=== PATIENT | male | born 1980 | race African-American/Black ===

== ENCOUNTER → 2021-10-21 13:10 | Outpatient (REF) | payer MEDICAID, SELFPAY ==
--- NOTE | 2021-10-21 13:17 | ECG_ITS ---
Hook-up date: 2021-10-21 13:28:00 Duration: 24:48:00 Test Indications: PALPITATIONS Medications: 94485 QRS complexes 131 Ventricular ectopics which represent <1 % of total QRS comp. * Supraventricular ectopics which represent % of total QRS comp. * Paced QRS complexs which represent % of total QRS comp. VENTRICULAR ECTOPY 131 Isolated 0 Bigeminal Cycles 0 Couplets 0 Runs 0 Beats in Runs * Beats LONGEST at * BPM at :: -- * Beats FASTEST at * BPM at :: -- SUPRAVENTRICULAR ECTOPY * Isolated * Couplets * Runs * Beats in Runs * Beats LONGEST at * BPM at :: -- * Beats FASTEST at * BPM at :: -- HEART RATES 45 MIN at 00:46:26 2021-10-22 68 AVG 154 MAX at 13:53:24 2021-10-21 LONGEST RR 1.3600 secs at 02:11:16 2021-10-22 S-T LEVELS Channel 1 - 128 mm at 13:28:00 2021-10-21 - 128 mm at 13:28:00 2021-10-21 Channel 2 - 128 mm at 13:28:00 2021-10-21 - 128 mm at 13:28:00 2021-10-21 Channel 3 - 128 mm at 03:24:71 -- - 128 mm at 03:24:71 Underlying rhythm is sinus; Average ventricular rate 68/min; range 45-154/min; Rare ventricular ectopy; No sustained arrhythmias; Patient did not report any symptoms in the diary Referred By: Andrei Gutierrez Overread By: AMBER JAMES
== END ==
LOC: HO.CARD 13:10
PROVIDERS: Visit Provider Internal Medicine
DX: R00.2 Palpitations (principal)
CPT/HCPCS: 93225; 93226

== ENCOUNTER 2024-12-26 10:20 | Outpatient (REF) | payer MEDICAID, SELFPAY ==
--- OUTSIDE RECORDS SUMMARY | 2024-12-26 11:43 | XMS_ITS | Clinical Summary ---
Author Organization [facility] Address [address] [place] [address] Care Team Providers Care Guard Lieutenant Name Role Phone Andrei Gutierrez MD Primary Care Provider [phone] Allergies No known active allergies Medications Dextromethorphan -guaiFENesin (Mucinex DM) 30-600 MG tablet sustained-releas e 12 hour Use 1 tab TID 28 tablet 10/14/2024 Active Active Problems Problem Noted Date Diagnosed Date Elevated blood pressure reading 12/26/2024 Annual physical exam 12/26/2024 Encounters Date Type Department Care Team Description 12/26/2024 9:30 AM EDT Office Visit [facility] [address] [place] [address] Andrei Gutierrez MD Elevated blood pressure reading (Primary Dx); Screening for colon cancer; Annual physical exam 12/26/2024 Travel 12/19/2024 Patient Outreach [address] [address] Andrei Gutierrez MD Pre-visit Planning (Pre visit planning LVM ) 10/19/2024 Telephone [facility] [address] [place] [address] Andrei Gutierrez MD Insurance 10/14/2024 10:00 AM EST Office Visit [facility] [address] [place] [address] Lisa Escobar MD Influenza B 10/14/2024 Travel 10/14/[address] [address] Andrei Gutierrez MD Nurse Triage from Last 3 Months Immunizations Name Administration Dates Next Due Tdap 01/30/2022 Social History Tobacco Use Types Packs/Day Years Used Date Smoking Tobacco: Never Smokeless Tobacco: Never Tobacco Cessation:Counseling Given: Not Answered Alcohol Use Standard Drinks/Week Comments Never 0 (1 standard drink = 0.6 oz pur e alcohol) Depression Answer Date Recorded Patient Health Questionnaire-9 Score 0 12/26/2024 Patient Health Questionnaire-9 Score 0 12/26/2024 Last PHQ-9: Questionnaire Data Not on file 0 12/26/2024 Housing Stability Answer Date Recorded What is your housing situation today? I have cherrie garcia 12/26/[address] you li ve. Do you have problems with any of the following? None of the above 12/26/2024 Food Insecurity Answer Date Recorded Within the past 12 months, y ou worried that your food would run out before you got money to buy more: Never True 12/26/2024 Within the past 12 months,th e food you bought just didn't last and you didn't have enough money to get more: Never True 12/2024 Transportation Answer Date Recorded In the past 12 months, has l ack of transportation kept you from medical appts, meetings, work or from getting things needed for daily living? No 12/26/2024 Utilities Answer Date Recorded In the past 12 months, has t he electric, gas, oil or water company threatened to shut off services in your home? No 12/26/2024 Depression Answer Date Recorded Patient Health Questionnaire-2 Score 0 12/26/2024 Internet Access Answer Date Recorded Internet Access Q1 Yes 12/26/2024 Internet Access Q2 Not on file 12/26/2024 Sex and Gender Information Value Date Recorded Sex Assigned at Male 06/23/2022 10:35 AM EDT Legal Sex Male 10:35 AM EDT Gender Identity Male 06/23/2022 10:35 AM EDT Sexual Orientation Straight 06/23/2022 10 :35 AM EDT Last Filed Vital Signs Vital Sign Reading Time Taken Comments Blood Pressure 132/87 12/26/2024 9:33 AM EDT Pulse 56 12/26/2024 9:33 AM EDT Temperature 36.8 ??C (98.3 ??F) 12/26/2024 9:33 AM ED T Respiratory Rate 20 12/26/2024 9:33 AM EDT Oxygen Saturation 98% 12/26/2024 9:33 AM EDT Inhaled Oxygen Concentration - - Weight 74.3 kg (163 lb 12.8 oz) 12/26/2024 9:33 AM EDT Height 170.2 cm (5' 7 ) 12/26/2024 9:33 AM EDT Body Mass Index 25.65 12/26/2024 9:33 AM EDT Plan of Treatment Health Maintenance Due Date Last Done Comments CT Colonography 1978 Colonoscopy 1978 Colorectal Cancer Screening 1978 FIT DNA/Cologuard 1978 FIT 1978 FOBT 1978 Sigmoidoscopy 1978 Family Planning (PISQ) 1993 Hepatitis B Vaccines (1 of 3 - 19+ 3-dose series) 1997 COVID-19 Vaccine (2023-2 5 season) 2024 Influenza Vaccine (#1) 2024 Alcohol/Substance Use Screening 12/26/2025 12/26/2024 Depression Screening 12/26/2025 12/26/2024, 12/26/2024 SDOH Screening 12/26/2025 12/26/2024 Tobacco Screening 12/26/2025 12/26/2024 Lipid Panel 05/24/2026 05/24/2021 Zoster Vaccines (1 of 2) 01/06/2028 DTaP/Tdap/Td Vaccines (2 - T d or Tdap) 01/31/2032 01/30/2022 RSV Patients and Patients Aged 60 years or older (1 - 1-dose 75+ series) 2053 HIV Screening Completed 01/30/2022 Hepatitis C Screening Completed 01/30/2022 HIB Vaccines Aged Out No longer eligi ble based on patient's age to complete this topic HPV Vaccines Aged Out No longer eligi ble based on patient's age to complete this topic Hepatitis A Vaccines Aged Out No long er eligible based on patient's age to complete this topic IPV Vaccines Aged Out No longer eligi ble based on patient's age to complete this topic Meningococcal Vaccine Aged Out No memo yan eligible based on patient's age to complete this topic Pneumococcal Vaccine: Pediatrics (0 to 5 Years) and At-Risk Patients (6 to 49) Years) Aged Out No longer eligible b ased on patient's age to complete this topic RSV under 20 months Aged Out No longe r eligible based on patient's age to complete this topic Rotavirus Vaccines Aged Out No longer eligible based on patient's age to complete this topic Procedures Procedure Name Priority Date/Time Associated Diagnosis Comments POCT INFLUENZA A Routine 10/14/2024 10:3 6 AM EST Influenza B POCT RAPID COVID ANTIGEN Routine 10/14/2024 10:36 AM EST Influenza B POCT INFLUENZA B Routine 10/14/2024 10:3 5 AM EST Influenza B ZZZ HISTORICAL HEPATITIS C AB W/REFL TO HCV RNA, QN, PCR Routine 01/30/2022 12:00 AM EDT HIV 1/2 ANTIGEN/ANTIBODY, FOURTH GENERATION W/RFL Routine 01/30/2022 12:00 AM EDT LIPID PANEL, STANDARD Routine 05/24/2021 10:16 AM EDT from Last 3 Months or Most Recently Relevant to Health Maintenance Results * POCT Rapid Covid-19 BinaxNOW (10/14/2024 10:36 AM EST) Rapid COVID Ag Negative QC Media Lot # [id number] Lot# Expiration Date 7,026 Swab 10/14/2024 10:3 6 AM EST Lisa Escobar MD POINT OF CARE TEST ENTER/EDIT OR DERABLES Final Result * POCT Rapid Influenza A OSOM (10/14/2024 10:36 AM EST) Rapid Influenza A Ag Negative Negative, Indeterminate QC Media Lot # [id number] Lot# Expiration Date [id number] Swab Nasopharyngeal structure / Unknown 10/14/2024 10:36 AM EST Lisa Escobar MD POINT OF CARE TEST ENTER/EDIT OR DERABLES Final Result * (ABNORMAL) POCT Rapid Influenza B OSOM (10/14/2024 10:35 AM EST) Pathologist [facility] Rapid Influenza B Ag Positive( A) Negative, Indeterminate QC Media Lot # [id number] Lot# Expiration Date Swab 10/14/2024 10:3 5 AM EST Lisa Escobar MD POINT OF CARE TEST ENTER/EDIT OR DERABLES Final Result * HEPATITIS C AB W/REFL TO HCV RNA, QN, PCR (01/30/2022 12:00 AM EDT) Pathologist [facility] HEPATITIS C ANTIBODY NON-REACT ANDREA NON-REACT ANDREA [facility] INDEX 0.15 <1.00 [facility] Comment: ?? HCV antibody was non-reactive. There is no laboratory ?? evidence of HCV infection. ?? In most cases, no further action is required. However, if recent HCV exposure is suspected, a test for HCV RNA (test code 18962) is suggested. ?? For additional information please refer to http://education.Reimage/faq/NLF70w9 (This link is being provided for informational/ educational purposes only.) ?? 01/30/2022 Andrei Gutierrez MD HISTORICAL/NON ORDERABLE LA BS Final Result [facility] [address] * HIV 1/2 ANTIGEN/ANTIBODY,FOURTH GENERATION W/RFL (01/30/2022 12:00 AM EDT) Pathologist [facility] HIV-1/2 ANTIGEN AND ANTIBODIES, 4TH GENERATION W/ REFLEX NON-REACT ANDREA NON-REACT ANDREA [facility] Comment: HIV-1 antigen and HIV-1/HIV-2 antibodies were not detected. There is no laboratory evidence of HIV infection. ?? PLEASE NOTE: This information has been disclosed to you from records whose confidentiality may be protected by state law. ??If your state requires such protection, then the state law prohibits you from making any further disclosure of the information without the specific written consent of the person to whom it pertains, or as otherwise permitted by law. A general authorization for the release of medical or other information is NOT sufficient for this purpose. ? For additional information please refer to http://LinQpay.Reimage/faq/GDV225 (This link is being provided for informational/ educational purposes only.) ? The performance of this assay has not been clinically validated in patients less than 2 years old. ?? 01/30/2022 us Andrei Gutierrez MD LAB BLOOD ORDERABLES Final Result Performing Organization Address City/State/[facility] Co de Phone Number [facility] [address] * LIPID PANEL, STANDARD (05/24/2021 10:16 AM EDT) Chol/HDLC Ratio 3.0 <5.0 (calc) [facility] Cholesterol, Total 131 <200 mg/dL [facility] HDL Cholesterol 43 > OR = 40 mg/dL [facility] LDL Cholesterol 74 mg/dL (calc) [facility] Comment: Reference range: <100 ?? Desirable range <100 mg/dL for primary prevention; ?? <70 mg/dL for patients with CHD or diabetic patients ?? with > or = 2 CHD risk factors. ?? LDL-C is now calculated using the Cindi ?? calculation, which is a validated novel method providing ?? better accuracy than the Friedewald equation in the ?? estimation of LDL-C. ?? Joel THAO et al. KURT. 2013;310(19): 4072-0517 ?? (http://LinQpay.Shopalytic/faq/QOY062) Non-HDL Cholesterol 88 <130 mg/dL (calc) [facility] Comment: For patients with diabetes plus 1 major ASCVD risk ?? factor, treating to a non-HDL-C goal of <100 mg/dL ?? (LDL-C of <70 mg/dL) is considered a therapeutic ?? option. Triglycerides 62 <150 mg/dL [facility] 05/24/2021 10:1 6 AM EDT us Francheska Govea MD LAB BLOOD ORDERABLES Final Re sult [facility] [address] from Last 3 Months or Most Recently Relevant to Health Maintenance Insurance [facility] Care Teams Guard Lieutenant Relationship Specialty Start Date End Date Andrei Gutierrez MD [address] [place] [address] PCP - General Internal Medicine 09/17/18
--- OUTSIDE RECORDS SUMMARY | 2024-12-26 11:43 | XMS_ITS | Encounter Summary ---
Author Organization [employer] Address [address] [place] [address] Care Team Providers Care Value Analyst Name Role Phone Andrei Gutierrez MD Primary Care Provider [phone] Reason for Visit * Reason Comments Annual Exam Encounter Details Date Type Department Care Team ([facility] Contact Info) Description 12/26/2024 9:30 AM EDT Office Visit [facility] [address] [place] [address] Andrei Gutierrez MD [address] [place] [address] Elevated blood pressure reading (Primary Dx); Screening for colon cancer; Annual physical exam Social History Tobacco Use Types Packs/Day Years Used Date Smoking Tobacco: Never Smokeless Tobacco: Never Alcohol Use Standard Drinks/Week Comments Never 0 [...] Orientation Straight 06/23/2022 10 :35 AM EDT documented as of this encounter Last Filed Vital Signs Vital Sign Reading [...] Mass Index 25.65 12/26/2024 9:33 AM EDT documented in this encounter Plan of Treatment Scheduled Orders Name Type Priority Associated Diagnoses Orde r Schedule CBC auto differential Lab Routine Elevated blood pressure reading Expected: 12/26/2024 (Approximate), Expires: 12/26/2025 Comprehensive Metabolic Panel Lab Routine Elevated blood pressure reading Expected: 12/26/2024 (Approximate), Expires: 12/26/2025 Lipid Panel, Standard Lab Routine Elevated blood pressure reading Expected: 12/26/2024 (Approximate), Expires: 12/26/2025 TSH W/Reflex to FT4 Lab Routine Elevated blood pressure reading Expected: 12/26/2024 (Approximate), Expires: 12/26/2025 Cologuard?? colon cancer screening Lab Routine Screening for colon cancer Expected: 12/26/2024 (Approximate), Expires: 12/26/2025 Hepatitis A,B,C Profile Lab Routine Elevated blood pressure reading Expected: 12/26/2024, Expires: 12/26/2025 documented as of this encounter Visit Diagnoses Diagnosis Elevated blood pressure reading- Primary Elevated blood pressure reading without diagnosis of hypertension Screening for colon cancer Special screening for malignant neoplasms, colon Annual physical exam Routine general medical examination at a health care facility documented in this encounter Additional Health Concerns Assessment Noted Time PHQ-9 Depression Total Score: 0 12/27/19 10:31 AM EDT documented as of this encounter Care Teams Value Analyst Relationship Specialty Start Date End Date Andrei Gutierrez MD [address] [place] [id number] PCP - General Internal Medicine 09/17/18 documented as of this encounter
--- OUTSIDE RECORDS SUMMARY | 2024-12-26 11:43 | XMS_ITS | Encounter Summary ---
Author Organization [employer] Address [address] [place] [address] Care Team Providers Care Audiologist Name Role Phone Andrei Gutierrez MD Primary Care Provider [phone]- [phone] Encounter Details Date Type Department Care Team (Latest Contact Info) Description 12/26/2024 Travel Social History Tobacco Use Types Packs/Day Years [...] AM EDT documented as of this encounter Plan of Treatment Not on file documented as of this encounter Visit Diagnoses Not on filedocumented in this encounter Additional Health Concerns Assessment Noted Time PHQ-9 Depression Total Score: 0 12/27/19 10:31 AM EDT documented as of this encounter Care Teams Audiologist Relationship Specialty Start Date End Date Andrei Gutierrez MD [address] [place] [id number] PCP - General Internal Medicine 09/17/18 documented as of this encounter
[2024-12-26 14:50] LABS: MANUAL DIFF FLAG NO
[2024-12-26 14:54] LABS: Basophils Percent Auto 0.7 % (0-2); Eosinophils Absolute Auto 0.1 X10*3/uL (0.0-0.4); Eosinophils Percent Auto 3.1 % (0-4); Hematocrit 45.7 % (42.0-52.0); Hemoglobin 15.1 g/dl (14.0-18.0); Imm Gran Abs Auto 0.01 X10*3/uL (0.00-0.03); Imm Gran Pct Auto 0.2 % (0.0-0.4); Lymphocytes Absolute Auto 1.5 X10*3/uL (1.2-4.9); Lymphocytes Percent Auto 36.3 % (20-40); Mean Corpuscular Hemoglobin 28.4 pg (27.0-33.0); Mean Corpuscular Volume 85.9 fL (80.0-98.0); Mean Platelet Volume 10.7 fL (9.4-12.4); Monocytes Absolute Auto 0.4 X10*3/uL (0.1-1.2); Monocytes Percent Auto 8.5 % (2-11); Neutrophils Absolute Auto 2.2 x10*3/uL (2.0-8.3); Neutrophils Percent Auto 51.2 % (45-73); Platelet Count 199 X10*3/uL (160-400); Red Blood Count 5.32 X10*6/uL (4.60-5.80); Red Cell Distribution Width 12.2 % (11.0-16.0); White Blood Count 4.2 X10*3/uL (4.8-10.8)
[2024-12-26 15:20] LABS: Alanine Aminotransferase 56 U/L (0-40); Albumin Level 4.4 g/dL (3.5-5.0); Anion Gap 11 (12-20); Aspartate Amino Transferase 44 U/L (5-37); Bilirubin Total 0.3 mg/dL (0.0-1.0); Blood Urea Nitrogen 9 mg/dL (9-16); Calcium 9.2 mg/dL (8.4-10.2); Carbon Dioxide 29 mmol/L (22-29); Chloride 103 mmol/L (96-108); Cholesterol 136 mg/dL (<200); Estimated Glomerular Filt Rate > 60; Glucose Random 91 mg/dL (60-115); HDL Cholesterol 45 mg/dL (>40); LDL Cholesterol Calculated 80 mg/dL (<100); Potassium 4.1 mmol/L (3.3-5.1); Sodium 139 mmol/L (135-145); Total Protein 7.2 g/dL (6.5-8.0); Triglycerides 57 mg/dL (<150)
[2024-12-26 15:31] LABS: TSH reflex Free T4 0.96 uIU/mL (0.32-4.0)
[2024-12-26 16:07] LABS: Alkaline Phosphatase 82 U/L (39-117)
[2024-12-27 04:14] LABS: HBS Num1 > 1000.00 mIU/mL (0-7.99); HBc Num1 0.11 S/CO (0.00-0.79); HBsAGNum1 0.47 S/CO (0.00-0.99); Hepatitis A Antibody IgM 0.21 Index (0-0.79); Hepatitis B Core Antibody Nonreactive (Nonreactive); Hepatitis B Surface Antigen Negative (Negative); ~HepC Num1 0.15 S/CO (0.00-0.79); ~Hepatitis A Antibody IgM Nonreactive (Nonreactive); ~Hepatitis B Surface Antibody REACTIVE (Nonreactive); ~Hepatitis C Antibody Nonreactive (Nonreactive)
== END 2024-12-26 10:21 | disposition home or self-care (01) ==
LOC: HO.CHCLDS 10:20
PROVIDERS: Visit Provider Internal Medicine
DX: R03.0 Elevated blood-pressure reading, without diagnosis of hypertension (principal)
CPT/HCPCS: 36415; 80053; 80061; 84443; 85025; 86704; 86706; 86709; 86803; 87340

== ENCOUNTER 2024-12-30 11:01 | Outpatient (REF) | payer OTHER, SELFPAY ==
--- OUTSIDE RECORDS SUMMARY | 2024-12-30 11:33 | XMS_ITS | Encounter Summary ---
Author Organization [employer] Address [address] [place] [address] Care Team Providers Care Building Insulation Installer Name Role Phone Andrei Gutierrez MD Primary Care Provider Encounter Details Date Type Department Care Team [...] documented as of this encounter Care Teams Building Insulation Installer Relationship Specialty Start Date End Date Andrei Gutierrez MD [address] [place] [id number] PCP - General Internal Medicine 09/17/18 documented as of this encounter
--- OUTSIDE RECORDS SUMMARY | 2024-12-30 11:33 | XMS_ITS | Encounter Summary ---
Author Organization [employer] Address [address] [place] [address] Care Team Providers Care Entrepreneurship Program Director Name Role Phone Andrei Gutierrez MD Primary Care Provider Reason for Visit * Reason Comments Annual Exam Encounter Details Date Type Department Care Team ([facility] st Contact Info) Description 12/26/2024 9:30 AM EDT Office Visit [facility] [address] [place] [phone] Andrei Gutierrez MD [address] [place] [address] Elevated blood pressure reading (Primary Dx); Screening [...] is your housing situation today? I have hcerrie garcia 12/26/[address] you [...] 9:33 AM EDT documented in this encounter Progress Notes * Andrei Gutierrez MD - 12/26/2024 9:30 AM EDT SUBJECTIVE Kali Murry is a 44 y.o. male who presents for Annual Exam. HPI Patient is feeling overall well. Denies any acute events since his last office visit. Patient Active Problem List Diagnosis Elevated blood pressure reading No Known Allergies Current Outpatient Medications on File Prior to Visit Medication Sig Dispense Refill Dextromethorphan-guaiFENesin (Mucinex DM) 30-600 MG tablet sustained-release 12 hour Use 1 tab TID 28 tablet 0 No current facility-administered medications on file prior to visit. Review of Systems Constitutional: Negative for activity change, appetite change, chills and diaphoresis. HENT: Negative for dental problem, drooling and ear discharge. Eyes: Negative for pain and itching. Respiratory: Negative for cough, choking and chest tightness. Cardiovascular: Negative for palpitations and leg swelling. Gastrointestinal: Negative for abdominal pain, anal bleeding and blood in stool. Endocrine: Negative for cold intolerance and heat intolerance. Genitourinary: Negative for flank pain, frequency and genital sores. Musculoskeletal: Negative for back pain. Neurological: Negative for light-headedness, numbness and headaches. Psychiatric/Behavioral: Negative for agitation, confusion and decreased concentration. OBJECTIVE Vitals: 12/26/24 0933 BP: 132/87 BP Location: Left arm Patient Position: Sitting BP Cuff Size: Adult Pulse: 56 Resp: 20 Temp: 98.3 ??F (36.8 ??C) TempSrc: Oral SpO2: 98% Weight: 163 lb 12.8 oz (74.3 kg) Height: 5' 7 (1.702 m) Physical Exam Constitutional: General: He is not in acute distress. Appearance: Normal appearance. He is obese. He is not ill-appearing, toxic- appearing or diaphoretic. HENT: Head: Normocephalic. Right Ear: Tympanic membrane normal. Left Ear: Tympanic membrane normal. Nose: Nose normal. Eyes: General: No scleral icterus. Right eye: No discharge. Left eye: No discharge. Pupils: Pupils are equal, round, and reactive to light. Cardiovascular: Rate and Rhythm: Normal rate and regular rhythm. Heart sounds: No murmur heard. No friction rub. No gallop. Pulmonary: Effort: Pulmonary effort is normal. No respiratory distress. Breath sounds: Normal breath sounds. No stridor. No wheezing, rhonchi or rales. Chest: Chest wall: No tenderness. Abdominal: General: Abdomen is flat. There is no distension. Palpations: Abdomen is soft. There is no mass. Tenderness: There is no abdominal tenderness. There is no right CVA tenderness, guarding or rebound. Hernia: No hernia is present. Musculoskeletal: General: Normal range of motion. Cervical back: Normal range of motion. Skin: General: Skin is warm. Neurological: General: No focal deficit present. Mental Status: He is alert. Psychiatric: Mood and Affect: Mood normal. Behavior: Behavior normal. Assessment/Plan Assessment/Plan Diagnoses and all orders for this visit: Elevated blood pressure reading Comments: Continue with BP monitoring at home Call the office if the blood pressure is above goal. Orders: - CBC auto differential; Future - Comprehensive Metabolic Panel; Future - Lipid Panel, Standard; Future - TSH W/Reflex to FT4; Future - Hepatitis A,B,C Profile; Future Screening for colon cancer - Cologuard?? colon cancer screening; Future Annual physical exam Comments: Normal exam Patient is to maintain a healthy and balanced diet. Mr Kali Murry will be called with the results of his blood work. documented in this encounter Plan of Treatment Scheduled Orders Name Type Priority Associated Diagnoses Orde r Schedule Cologuard?? colon cancer screening Lab Routine Screening for colon cancer Expected: 12/26/2024 (Approximate), Expires: 12/26/2025 documented as of this encounter Procedures Procedure Name Priority Date/Time Associated Diagnosis Comments TSH W/REFLEX TO FT4 Routine 12/26/2024 1 0:23 AM EDT Elevated blood pressure reading HEPATITIS PANEL, GENERAL Routine 12/26/2024 10:23 AM EDT Elevated blood pressure reading CBC WITH AUTO DIFFERENTIAL Routine 12/26/2024 10:23 AM EDT Elevated blood pressure reading LIPID PANEL, STANDARD Routine 12/26/2024 10:23 AM EDT Elevated blood pressure reading COMPREHENSIVE METABOLIC PANEL Routine 12/26/2024 10:23 AM EDT Elevated blood pressure reading documented in this encounter Results * Hepatitis A,B,C Profile (12/26/2024 10:23 AM EDT) Hepatitis A IgM Nonreactive Nonreactive [facility] Comment:IgM antibodies to TUCKER V not detected; does not exclude earlyacute or recovered HAV infection. ~Hepatitis B Surface Antibody REACTIVE Nonreactive [facility] Comment:REACTIVE: > 11.99 mI U/mL Hepatitis B Core Antibody Nonreactive Nonreactive [facility] Hepatitis C Antibody Nonreactive Nonreactive [facility] Comment:Antibodies to HCV no t detected; does not exclude early acuteHCV infection. Hepatitis B Surface Ag Negative Negative [facility] Blood Venous blood specimen / Unknown 12/26/2024 10:23 AM EDT 12/26/2024 2:46 PM EDT us Andrei Gutierrez MD LAB BLOOD ORDERABLES Final Result Performing Organization Address [facility] Co de Phone Number [facility] [address] [place] [phone] * TSH W/Reflex to FT4 (12/26/2024 10:23 AM EDT) TSH reflex Free T4 0.96 0.32 - 4.0 uIU/mL [facility] Blood Venous blood specimen / Unknown 12/26/2024 10:23 AM EDT 12/26/2024 2:46 PM EDT us Andrei Gutierrez MD LAB BLOOD ORDERABLES Final Result Performing Organization Address [facility] Phone Number [facility] [address] [place] [phone] * Lipid Panel, Standard (12/26/2024 10:23 AM EDT) Triglycerides 57 <150 mg/dL [facility] Comment:Desirable Triglyceri de: less than 150 mg/dLBorderline High Triglyceride 150-199 mg/dLHigh Triglyceride: 200-499 mg/dLVery High Triglyceride: greater than or equal to 5OO mg/dL Cholesterol 136 <200 mg/dL [facility] Comment:Desirable Cholestero l: less than 200 mg/dLBorderline High Cholesterol: 200-239 mg/dLHigh Cholesterol: greater than 239 mg/dL LDL Cholesterol Calculated 80 <100 mg/dL [facility] Comment:Desirable LDL: less than 100 mg/dLNear Optimal/Above Optimal LDL: 110- 129 mg/dLBorderline High LDL: 130-159 mg/dLHigh LDL: 160-189 mg/dLVery High LDL: greater than or equal to 190 mg/dL HDL Cholesterol 45 >40 mg/dL [facility] Comment:Desirable HDL: great er than 40 mg/dL Note: This HDL assay may give artificially low results in patients with liver disease. Blood Venous blood specimen / Unknown 12/26/2024 10:23 AM EDT 12/26/2024 2:46 PM EDT us Andrei Gutierrez MD LAB BLOOD ORDERABLES Final Result [facility] [address] [place] [phone] * (ABNORMAL) Comprehensive Metabolic Panel (12/26/2024 10:23 AM EDT) Sodium 139 135 - 145 mmol/L [facility] Potassium 4.1 3.3 - 5.1 mmol/L [facility] Chloride 103 96 - 108 mmol/L [facility] Carbon Dioxide 29 22 - 29 mmol/L [facility] Anion Gap 11(L) 12 - 20 [facility] Urea Nitrogen (BUN) 9 9 - 16 mg/dL [facility] Creatinine, Serum 1.04 0.5 - 1.4 mg/dL [facility] Estimated Glomerular Filt Rate >60 [facility] Comment:Chronic Kidney Disea se: Estimated GFR < 60 mL/min/[id number] Kidney Disease: Estimated GFR < 15 mL/min/1.73m2 Glucose 91 60 - 115 mg/dL [facility] Calcium 9.2 8.4 - 10.2 mg/dL [facility] Bilirubin, Total 0.3 0.0 - 1.0 mg/dL [facility] Aspartate Amino Transferase 44(H) 5 - 37 U/L [facility] Alanine Aminotransferase 56(H) 0 - 40 U/L [facility] Total Protein 7.2 6.5 - 8.0 g/dL [facility] Albumin Level 4.4 3.5 - 5.0 g/dL [facility] Alkaline Phosphatase 82 39 - 117 U/L [facility] Blood Venous blood specimen / Unknown 12/26/2024 10:23 AM EDT 12/26/2024 2:46 PM EDT Andrei Gutierrez MD LAB BLOOD ORDERABLES Final Result [facility] [address] [place] [phone] * (ABNORMAL) CBC auto differential (12/26/2024 10:23 AM EDT) White Blood Count 4.2(L) 4.8 - 10.8 X10*3/uL [facility] Red Blood Count 5.32 4.60 - 5.80 X10*6/uL [facility] Hemoglobin 15.1 14.0 - 18.0 g/dl [facility] Hematocrit 45.7 42.0 - 52.0 % [facility] Mean Corpuscular Volume 85.9 80.0 - 98.0 fL [facility] Mean Corpuscular Hemoglobin 28.4 27.0 - 33.0 pg [facility] Mean Corpuscular HGB Conc 33.0 31.0 - 36.0 g/dl [facility] Red Cell Distribution Width 12.2 11.0 - 16.0 % [facility] Platelet Count 199 160 - 400 X10*3/uL [facility] Mean Platelet Volume 10.7 9.4 - 12.4 fL [facility] Neutrophils Percent Auto 51.2 45 - 73 % [facility] Imm Gran Pct Auto 0.2 0.0 - 0.4 % [facility] Lymphocytes Percent Auto 36.3 20 - 40 % [facility] Monocytes Percent Auto 8.5 2 - 11 % [facility] Eosinophils Percent Auto 3.1 0 - 4 % [facility] Basophils Percent Auto 0.7 0 - 2 % [facility] NRBC Pct Auto 0.0 0.0 - 0.2 /100WBC [facility] Neutrophils Absolute Auto 2.2 2.0 - 8.3 x10*3/uL [facility] Imm Gran Abs Auto 0.01 0.00 - 0.03 X10*3/uL [facility] Lymphocytes Absolute Auto 1.5 1.2 - 4.9 X10*3/uL [facility] Monocytes Absolute Auto 0.4 0.1 - 1.2 X10*3/uL [facility] Eosinophils Absolute Auto 0.1 0.0 - 0.4 X10*3/uL [facility] Basophils Absolute Auto 0.0 0.0 - 0.2 X10*3/uL [facility] NRBC Abs Auto 0.000 0.0 - 0.012 X10*3/uL [facility] Blood Venous blood specimen / Unknown 12/26/2024 10:23 AM EDT 12/26/2024 2:46 PM EDT us Andrei Gutierrez MD LAB BLOOD ORDERABLES Final Result [facility] [address] [place] [phone] documented in this encounter Visit Diagnoses Diagnosis Elevated blood pressure reading- Primary Elevated blood pressure reading without diagnosis of hypertension Screening for colon cancer Special screening for malignant neoplasms, colon Annual physical exam Routine general medical examination at a health care facility documented in this encounter Additional Health Concerns Assessment Noted Time PHQ-9 Depression Total Score: 0 12/27/19 25 10:31 AM EDT documented as of this encounter Care Teams Entrepreneurship Program Director Relationship Specialty Start Date End Date Andrei Gutierrez MD [address] [place] [phone] PCP - General Internal Medicine 09/17/18 documented as of this encounter
--- OUTSIDE RECORDS SUMMARY | 2024-12-30 11:33 | XMS_ITS | Clinical Summary ---
Author Organization [employer] [facility] Address [address] [place] [address] Care Team Providers Care Vice President Of Talent Management Name Role Phone Andrei Gutierrez MD Primary Care Provider Allergies No known active allergies Medications Dextromethorphan -guaiFENesin (Mucinex DM) 30-600 MG tablet sustained-releas e 12 hour Use 1 tab TID 28 tablet 10/14/2024 Active Active Problems Problem Noted Date Diagnosed Date Elevated blood pressure reading 12/26/2024 Annual physical exam 12/26/2024 Encounters Date Type Department Care Team Description 12/27/2024 Telephone [facility] [address] [place] [address] Andrei Gutierrez MD Results 12/26/2024 9:30 AM EDT Office Visit [facility] [address] [place] [address] Andrei Gutierrez MD Elevated blood pressure reading (Primary Dx); Screening for colon cancer; Annual physical exam 12/26/2024 Orders Only [facility] [address] [place] [address] Andrei Gutierrez MD Transaminitis (Primary Dx) 12/26/2024 Travel 12/19/2024 Patient Outreach [facility] [address] [place] [address] Andrei Gutierrez MD Pre-visit Planning (Pre visit planning LVM ) 10/19/2024 Telephone [facility] [address] [place] [address] Andrei Gutierrez MD Insurance 10/14/2024 10:00 AM EST Office Visit [facility] [address] [place] [address] Lisa Escobar MD Influenza B 10/14/2024 Travel 10/14/2024 Telephone [facility] [address] [place] [address] Andrei Gutierrez MD Nurse Triage from Last [...] - 19+ 3-dose series) 1997 COVID-19 Vaccine ( - 2023-2 5 season) 2024 Influenza Vaccine (#1) 2024 Alcohol/Substance Use Screening 12/26/2025 12/26/2024 Depression Screening 12/26/2025 12/26/2024, 12/26/2024 SDOH Screening 12/26/2025 12/26/2024 Tobacco Screening 12/26/2025 12/26/2024 Zoster Vaccines (1 of 2) 01/06/2028 Lipid Panel 12/26/2029 12/26/2024, 05/24/2021 DTaP/Tdap/Td Vaccines (2 - T d or Tdap) 01/31/2032 01/30/2022 RSV Patients and Patients Aged 60 years or older (1 - 1-dose 75+ series) 2053 HIV Screening Completed 01/30/2022 Hepatitis C Screening Completed 12/26/2024 , 01/30/2022 HIB Vaccines Aged Out No longer [...] Procedure Name Priority Date/Time Associated Diagnosis Comments HEPATITIS PANEL, GENERAL Routine 12/26/2024 10:23 AM EDT Elevated blood pressure reading TSH W/REFLEX TO FT4 Routine 12/26/2024 1 0:23 AM EDT Elevated blood pressure reading LIPID PANEL, STANDARD Routine 12/26/2024 10:23 AM EDT Elevated blood pressure reading COMPREHENSIVE METABOLIC PANEL Routine 12/26/2024 10:23 AM EDT Elevated blood pressure reading CBC WITH AUTO DIFFERENTIAL Routine 12/26/2024 10:23 AM EDT Elevated blood pressure reading POCT INFLUENZA A Routine 10/14/2024 10:3 6 AM EST Influenza B POCT RAPID COVID ANTIGEN Routine 10/14/2024 10:36 AM EST Influenza B POCT INFLUENZA B Routine 10/14/2024 10:3 5 AM EST Influenza B HIV 1/2 ANTIGEN/ANTIBODY, FOURTH GENERATION W/RFL Routine 01/30/2022 12:00 AM EDT from Last 3 Months or Most Recently Relevant to Health Maintenance Results * TSH W/Reflex to FT4 (12/26/2024 10:23 AM EDT) TSH reflex Free T4 0.96 0.32 - 4.0 uIU/mL [facility] Blood Venous blood specimen / Unknown 12/26/2024 10:23 AM EDT 12/26/2024 2:46 PM EDT Andrei Gutierrez MD LAB BLOOD ORDERABLES Final Result Performing Organization Address [facility] Co de Phone Number [facility] [address] [place] [phone] * Hepatitis A,B,C Profile (12/26/2024 10:23 AM EDT) Hepatitis A IgM Nonreactive Nonreactive [facility] Comment:IgM antibodies to TUCKER V not detected; does not exclude earlyacute or recovered HAV infection. ~Hepatitis B Surface Antibody REACTIVE Nonreactive [facility] Comment:REACTIVE: > 11.99 mI U/mL Hepatitis B Core Antibody Nonreactive Nonreactive [facility] Hepatitis C Antibody Nonreactive Nonreactive [facility] Comment:Antibodies to HCV no t detected; does not exclude early acuteHCV infection. Hepatitis B Surface Ag Negative Negative [facility] Blood Venous blood specimen / Unknown 12/26/2024 10:23 AM EDT 12/26/2024 2:46 PM EDT us Andrei Gutierrez MD LAB BLOOD ORDERABLES Final Result Performing Organization Address [facility] Co de Phone Number [facility] [address] [place] [phone] * (ABNORMAL) CBC auto differential (12/26/2024 10:23 AM EDT) White Blood Count 4.2(L) 4.8 - 10.8 X10*3/uL [facility] Red Blood Count 5.32 4.60 - 5.80 X10*6/uL [facility] Hemoglobin 15.1 14.0 - 18.0 g/dl [facility] Hematocrit 45.7 42.0 - 52.0 % [facility] Mean Corpuscular Volume 85.9 80.0 - 98.0 fL [facility] Mean Corpuscular Hemoglobin 28.4 27.0 - 33.0 pg [facility] Mean Corpuscular HGB Conc 33.0 31.0 - 36.0 g/dl [facility] Red Cell Distribution Width 12.2 11.0 - 16.0 % [facility] Platelet Count 199 160 - 400 X10*3/uL [facility] Mean Platelet Volume 10.7 9.4 - 12.4 fL [facility] Neutrophils Percent Auto 51.2 45 - 73 % [facility] Imm Gran Pct Auto 0.2 0.0 - 0.4 % [facility] Lymphocytes Percent Auto 36.3 20 - 40 % [facility] Monocytes Percent Auto 8.5 2 - 11 % [facility] Eosinophils Percent Auto 3.1 0 - 4 % [facility] Basophils Percent Auto 0.7 0 - 2 % [facility] NRBC Pct Auto 0.0 0.0 - 0.2 /100WBC [facility] Neutrophils Absolute Auto 2.2 2.0 - 8.3 x10*3/uL [facility] Imm Gran Abs Auto 0.01 0.00 - 0.03 X10*3/uL [facility] Lymphocytes Absolute Auto 1.5 1.2 - 4.9 X10*3/uL [facility] Monocytes Absolute Auto 0.4 0.1 - 1.2 X10*3/uL [facility] Eosinophils Absolute Auto 0.1 0.0 - 0.4 X10*3/uL [facility] Basophils Absolute Auto 0.0 0.0 - 0.2 X10*3/uL [facility] NRBC Abs Auto 0.000 0.0 - 0.012 X10*3/uL [facility] Blood Venous blood specimen / Unknown 12/26/2024 10:23 AM EDT 12/26/2024 2:46 PM EDT us Andrei Gutierrez MD LAB BLOOD ORDERABLES Final Result Performing Organization Address [facility]/ZIP Co de Phone Number [facility] [address] [place] [phone] * Lipid Panel, Standard (12/26/2024 10:23 AM EDT) Triglycerides 57 <150 mg/dL [facility] Comment:Desirable Triglyceri de: less than 150 mg/dLBorderline High Triglyceride 150-199 mg/dLHigh Triglyceride: 200-499 mg/dLVery High Triglyceride: greater than or equal to 5OO mg/dL Cholesterol 136 <200 mg/dL [facility] Comment:Desirable Cholestero l: less than 200 mg/dLBorderline High Cholesterol: 200-239 mg/dLHigh Cholesterol: greater than 239 mg/dL LDL Cholesterol Calculated 80 <100 mg/dL [facility] Comment:Desirable LDL: less than 100 mg/dLNear Optimal/Above Optimal LDL: 110- 129 mg/dLBorderline High LDL: 130-159 mg/dLHigh LDL: 160-189 mg/dLVery High LDL: greater than or equal to 190 mg/dL HDL Cholesterol 45 >40 mg/dL [facility] Comment:Desirable HDL: great er than 40 mg/dL Note: This HDL assay may give artificially low results in patients with liver disease. Blood Venous blood specimen / Unknown 12/26/2024 10:23 AM EDT 12/26/2024 2:46 PM EDT us Andrei Gutierrez MD LAB BLOOD ORDERABLES Final Result Performing Organization Address [facility]/ZIP Co de Phone Number [facility] [address] [place] [phone] * (ABNORMAL) Comprehensive Metabolic Panel (12/26/2024 10:23 AM EDT) Sodium 139 135 - 145 mmol/L [facility] Potassium 4.1 3.3 - 5.1 mmol/L [facility] Chloride 103 96 - 108 mmol/L [facility] Carbon Dioxide 29 22 - 29 mmol/L [facility] Anion Gap 11(L) 12 - 20 [facility] Urea Nitrogen (BUN) 9 9 - 16 mg/dL [facility] Creatinine, Serum 1.04 0.5 - 1.4 mg/dL [facility] Estimated Glomerular Filt Rate >60 [facility] Comment:Chronic Kidney Disea se: Estimated GFR < 60 mL/min/[id number] Kidney Disease: Estimated GFR < 15 mL/min/1.73m2 Glucose 91 60 - 115 mg/dL [facility] Calcium 9.2 8.4 - 10.2 mg/dL [facility] Bilirubin, Total 0.3 0.0 - 1.0 mg/dL [facility] Aspartate Amino Transferase 44(H) 5 - 37 U/L [facility] Alanine Aminotransferase 56(H) 0 - 40 U/L [facility] Total Protein 7.2 6.5 - 8.0 g/dL [facility] Albumin Level 4.4 3.5 - 5.0 g/dL [facility] Alkaline Phosphatase 82 39 - 117 U/L [facility] Blood Venous blood specimen / Unknown 12/26/2024 10:23 AM EDT 12/26/2024 2:46 PM EDT Andrei Gutierrez MD LAB BLOOD ORDERABLES Final Result [facility] [address] [place] [phone] * POCT Rapid Covid-19 BinaxNOW (10/14/2024 10:36 AM EST) Pathologist [facility] Rapid COVID Ag Negative QC Media Lot # [id number] Lot# Expiration Date 7,026 Swab 10/14/2024 10:3 6 AM EST Lisa Escobar MD POINT OF CARE TEST ENTER/EDIT OR DERABLES Final Result * POCT Rapid Influenza A OSOM (10/14/2024 10:36 AM EST) [facility] Rapid Influenza A Ag Negative Negative, Indeterminate QC Media Lot # [id number] Lot# Expiration Date Swab Nasopharyngeal structure / Unknown 10/14/2024 10:36 AM EST Lisa Escobar MD POINT OF CARE TEST ENTER/EDIT OR DERABLES Final Result * (ABNORMAL) POCT Rapid Influenza B OSOM (10/14/2024 10:35 AM EST) [facility] Rapid Influenza B Ag Positive( A) Negative, Indeterminate QC Media Lot # [id number] Lot# Expiration Date Swab 10/14/2024 10:3 5 AM EST Result [facility] Lisa Escobar MD POINT OF CARE TEST ENTER/EDIT OR DERABLES Final Result * HIV 1/2 ANTIGEN/ANTIBODY,FOURTH GENERATION W/RFL (01/30/2022 12:00 AM EDT) [facility] HIV-1/2 ANTIGEN AND ANTIBODIES, 4TH GENERATION W/ REFLEX NON-REACT ANDREA NON-REACT ANDREA [facility] Comment: HIV-1 antigen and HIV-1/HIV-2 [...] ? For additional information please refer to [email or web address] (This link is being provided for informational/ educational purposes only.) ? The performance of this assay has not been clinically validated in patients less than 2 years old. ?? 01/30/2022 Andrei Gutierrez MD LAB BLOOD ORDERABLES Final Result [facility] [address] [place] [address], from Last 3 Months or Most Recently Relevant to Health Maintenance Insurance [facility] Care Teams Vice President Of Talent Management Relationship Specialty Start Date End Date Andrei Gutierrez MD [address] [place] [phone] PCP - General Internal Medicine 09/17/18
--- OUTSIDE RECORDS SUMMARY | 2024-12-30 11:33 | XMS_ITS | Encounter Summary ---
Author Organization [employer] Address [address] [place] [address] Care Team Providers Care Website Project Manager Name Role Phone Andrei Gutierrez MD Primary Care Provider Reason for Visit * Reason Onset Date Comments Results 12/27/2024 Encounter Details Date Type Department Care Team ([facility] Contact Info) Description 12/27/2024 Telephone [facility] [address] [place], [place] [phone] Andrei Gutierrez MD [address] [place] [address] Results Social History Tobacco Use Types Packs/Day Years [...] AM EDT documented as of this encounter Miscellaneous Notes * Telephone Encounter - Desi Aleman RN - 12/27/2024 10:42 AM EDT TC to pt. RN explained patient has normal cholesterol level. Has elevated liver enzymes. He needs an ultrasound of the abdomen and some blood in an attempt to find out the cause. Pt asked what could cause his enzymes to be elevated and after RN brought up that diet could be one of the causes, pt asked that he could have the MD call him instead. Message sent to MD. documented in this encounter Plan of Treatment Not on file documented as of this encounter Visit Diagnoses Not on filedocumented in this encounter Additional Health Concerns Assessment Noted Time PHQ-9 Depression Total Score: 0 12/27/19 10:31 AM EDT documented as of this encounter Care Teams Website Project Manager Relationship Specialty Start Date End Date Andrei Gutierrez MD [address] [place] [phone] PCP - General Internal Medicine 09/17/18 documented as of this encounter
--- OUTSIDE RECORDS SUMMARY | 2024-12-30 11:33 | XMS_ITS | Encounter Summary ---
Author Organization [employer] [facility] Address [address] [place] [address] [address] [place] [address] Care Team Providers Care Junior Loan Processor Name Role Phone Andrei Gutierrez MD Primary Care Provider [phone] Reason for Referral * Imaging (Routine) - Authorized Specialty Diagnoses / Procedures Referred By Contac t Referred To Contact Radiology Diagnoses Transaminitis Procedures US Abdomen Complete Andrei Gutierrez MD [address] [place] [address] Phone: tel: fax: [address] Phone: tel: fax: Referral ID Status Reason Start Date Expiration Date V isits Requested Visits Authorized [id number] Authorized 12/26/2024 12/26/2025 1 1 Encounter Details Date Type Department Care Team (Late st Contact Info) Description 12/26/2024 Orders Only [facility] [address] [place] [address] Andrei Gutierrez MD [address] [place] [address] Transaminitis (Primary Dx) Social History Tobacco Use Types Packs/Day Years [...] as of this encounter Plan of Treatment Scheduled Orders Name Type Priority Associated Diagnoses Orde r Schedule US Abdomen Complete Imaging Routine Transaminitis Expected: 12/26/2024, Expires: 12/26/2025 Immunoglobulins Panel, Serum Lab Routine Transaminitis Expected: 12/26/2024 (Approximate), Expires: 12/26/2025 Smooth Muscle Antibody with Reflex to Titer Lab Routine Transaminitis Expected: 12/26/2024 (Approximate), Expires: 12/26/2025 Alpha 1 Antitrypsin Lab Routine Transaminitis Expected: 12/26/2024 (Approximate), Expires: 12/26/2025 Ferritin Lab Routine Transaminitis Expected: 12/26/2024, Expires: 12/26/2025 Iron And Total Iron Binding Capacity Lab Routine Transaminitis Expected: 12/26/2024, Expires: 12/26/2025 Prothrombin Time-INR Lab Routine Transaminitis Expected: 12/26/2024, Expires: 12/26/2025 Hepatic Function Panel Lab Routine Transaminitis Expected: 12/30/2024 (Approximate), Expires: 12/30/2025 documented as of this encounter Visit Diagnoses Diagnosis Transaminitis- Primary Nonspecific elevation of levels of transaminase or lactic acid dehydrogenase (LDH) documented in this encounter Additional Health Concerns Assessment Noted Time PHQ-9 Depression Total Score: 0 12/27/19 10:31 AM EDT documented as of this encounter Care Teams Junior Loan Processor Relationship Specialty Start Date End Date Andrei Gutierrez MD [address] [place] [phone] PCP - General Internal Medicine 09/17/18 documented as of this encounter
[2024-12-30 14:15] LABS: INTERNATIONAL NORM RATIO 1.1 (0.9-1.1); Prothrombin Time 12.5 SEC (10.9-12.4)
[2024-12-30 14:48] LABS: Alanine Aminotransferase 49 U/L (0-40); Albumin Level 4.5 g/dL (3.5-5.0); Alkaline Phosphatase 77 U/L (39-117); Aspartate Amino Transferase 35 U/L (5-37); Bilirubin Direct 0.2 mg/dL (0.0-0.5); Bilirubin Total 0.5 mg/dL (0.0-1.0); Iron 133 mcg/dL (45-160); Percent Iron Saturation 44 % (15-50); Total Iron Binding Capacity 304 mcg/dL (228-428); Total Protein 7.2 g/dL (6.5-8.0); Unsaturated Iron Binding 171 ug/dL
[2024-12-30 14:50] LABS: Ferritin 44 ng/mL (20-250)
[2025-01-02 14:53] LABS: IgA 135 mg/dL (47-310); IgG 1350 mg/dL (600-1640); IgM 92 mg/dL (50-300)
== END 2024-12-30 11:02 | disposition home or self-care (01) ==
LOC: HO.CHCLDS 11:01
PROVIDERS: Visit Provider Internal Medicine
DX: R74.01 Elevation of levels of liver transaminase levels (principal)
CPT/HCPCS: 36415; 80076; 82728; 82784; 83540; 85610

== ENCOUNTER → 2025-01-10 08:24 | Outpatient (RCR) | payer MEDICAID, SELFPAY | END | disposition home or self-care (01) | LOC: HO.PTCHIC 06-21 09:44 | PROVIDERS: PCP Internal Medicine; Visit Provider Internal Medicine | DX: M62.838 Other muscle spasm (principal) | CPT/HCPCS: 97110; 97140; 97161 ==

== ENCOUNTER 2025-02-10 09:25 | Outpatient (REF) | payer OTHER, SELFPAY ==
--- NOTE | ~2025-02-10 | US_ITS ---
EXAMINATION: US ABDOMEN COMPLETE CLINICAL INFORMATION: Elevated liver enzymes.. COMPARISON: None available. TECHNIQUE: Real-time ultrasound of the abdomen using grayscale technique. FINDINGS: PANCREAS: No peripancreatic fluid collections. ABDOMINAL AORTA: The proximal, mid, and distal segments are normal in caliber. INFERIOR VENA CAVA: Visualized portions are normal. LIVER: Liver is no measured by technologist. Increased echotexture. No nodular surface. No solid or cystic lesion detected by the technologist. No intrahepatic biliary ductal dilatation. GALLBLADDER: Fluid-filled. No pericholecystic fluid collection or gallbladder wall thickening. COMMON BILE DUCT: 4 mm. RIGHT KIDNEY: 9 cm. Normal echotexture. Normal renal cortical thickness. No hydronephrosis. No solid or cystic lesion detected. . LEFT KIDNEY: 10 cm. Normal echotexture. Normal renal cortical thickness. No hydronephrosis. No solid or cystic lesion detected. . SPLEEN: 10 cm. No focal lesion.. FREE FLUID: None. US/US abdomen complete IMPRESSION: Hepatic steatosis. Hepatocellular disease cannot be excluded. No cholelithiasis or choledocholithiasis. No ascites. No hydronephrosis. Electronically signed by: Moe Dorado MD 02/10/2025 10:33 AM EDT
--- OUTSIDE RECORDS SUMMARY | 2025-02-10 09:43 | XMS_ITS | Encounter Summary ---
Author Organization [facility] Address [address] [place] [address] [address] [place] [address] Care Team Providers Care Chronic Care Nurse Name Role Phone Andrei Gutierrez MD Primary Care Provider [phone] Reason for Referral * Imaging (Routine) - Authorized Specialty Diagnoses / Procedures Referred By Contac t Referred To Contact Radiology Diagnoses Transaminitis Procedures US Abdomen Complete Andrei Gutierrez MD [address] [place] [address] Phone: tel: fax: [address] Phone: tel: fax: Referral ID Status Reason Start Date Expiration Date V isits Requested Visits Authorized [id number] Authorized 12/26/2024 12/26/2025 1 1 Encounter Details Date Type Department Care Team (Late st Contact Info) Description 12/26/2024 Orders Only [facility] [address] [place] [address] Andrei Gutierrez MD [address] [place] [address] Transaminitis (Primary Dx) Social History Tobacco Use [...] AM EDT documented as of this encounter Functional Status * Over the past 2 weeks, how often have you been bothered by any of the following problems? Question Answer Date of Assessment Author Patient Health Questionnaire-2 Score 0 0 12/2024 10:31 AM EDT Yuko Maddox [place] * Little interest or pleasure in doing things Answer Date of Assessment Author Not at all 12/26/2024 10:31 AM EDT Leida Maddox MA * Feeling down, depressed, or hopeless Answer Date of Assessment Author Not at all 12/26/2024 10:31 AM EDT Leida Maddox MA * Trouble falling or staying asleep, or sleeping too much Answer Date of Assessment Author Not at all 12/26/2024 10:31 AM EDLeida De Santiago MA * Feeling tired or having little energy Answer Date of Assessment Author Not at all 12/26/2024 10:31 AM EDT Leida Maddox MA * Poor appetite or overeating Answer Date of Assessment Author Not at all 12/26/2024 10:31 AM EDT Leida Maddox MA * Feeling bad about yourself - or that you are a failure or have let yourself or your family down Answer Date of Assessment Author Not at all 12/26/2024 10:31 AM EDT Leida Maddox MA * Trouble concentrating on things, such as reading the newspaper or watching television Answer Date of Assessment Author Not at all 12/26/2024 10:31 AM BENNIET Leida Maddox MA * Moving or speaking so slowly that other people could have noticed? Or the opposite - being so fidgety or restless that you have been moving around a lot more than usual. Answer Date of Assessment Author Not at all 12/26/2024 10:31 AM EDLeida De Santiago MA * Thoughts that you would be better off or hurting yourself in some way Answer Date of Assessment Author Not at all 12/26/2024 10:31 AM Leida Burnham MA * Patient Health Questionnaire-9 Score Answer Date of Assessment Author 0 12/26/2024 10:31 AM Leida Burnham MA documented as of this encounter Miscellaneous Notes * Result Encounter Note - Andrei Gutierrez MD - 12/26/2024 8:14 PM EDT Please call. Inform Mr.Patrick Murry that he is ALT is still elevated. I recommend to repeat thetest in 6 weeks to assess if it has stabilized. documented in this encounter Plan of Treatment Scheduled Orders Name Type Priority Associated Diagnoses Orde r Schedule US Abdomen Complete Imaging Routine Transaminitis Expected: 12/26/2024, Expires: 12/26/2025 Smooth Muscle Antibody with Reflex to Titer Lab Routine Transaminitis Expected: 12/26/2024 (Approximate), Expires: 12/26/2025 Alpha 1 Antitrypsin Lab Routine Transaminitis Expected: 12/26/2024 (Approximate), Expires: 12/26/2025 Hepatic Function Panel Lab Routine Transaminitis Expected: 12/30/2024 (Approximate), Expires: 12/30/2025 documented as of this encounter Procedures Procedure Name Priority Date/Time Associated Diagnosis Comments IRON AND TOTAL IRON BINDING CAPACITY Routine 12/30/2024 11:06 AM EDT Transaminitis PROTHROMBIN TIME-INR Routine 12/30/2024 11:06 AM EDT Transaminitis IMMUNOGLOBULINS, QUANTITATIVE, IGA, IGG, IGM Routine 12/30/2024 11:06 AM EDT Transaminitis FERRITIN Routine 12/30/2024 11:06 AM EDT Transaminitis HEPATIC FUNCTION PANEL Routine 12/30/2024 11:06 AM EDT Transaminitis documented in this encounter Results * (ABNORMAL) Hepatic Function Panel (12/30/2024 11:06 AM EDT) Bilirubin, Total 0.5 0.0 - 1.0 mg/dL [facility] Bilirubin, Direct 0.2 0.0 - 0.5 mg/dL [facility] Aspartate Amino Transferase 35 5 - 37 U/L [facility] Alanine Aminotransferase 49(H) 0 - 40 U/L [facility] Total Protein 7.2 6.5 - 8.0 g/dL [facility] Albumin Level 4.5 3.5 - 5.0 g/dL [facility] Alkaline Phosphatase 77 39 - 117 U/L [facility] Blood Venous blood specimen / Unknown 12/30/2024 11:06 AM EDT 12/30/2024 1:59 PM EDT Andrei Gutierrez MD LAB BLOOD ORDERABLES Final Result [facility] [address] [place] [phone] [phone] * (ABNORMAL) Prothrombin Time-INR (12/30/2024 11:06 AM EDT) Prothrombin Time 12.5(H) 10.9 - 12.4 SEC [facility] INTERNATIONAL NORM RATIO 1.1 0.9 - 1.1 [facility] Comment:INTERNATIONAL NORMAL IZED RATIO (INR) REFERENCE RANGES Reference RangeFor patients not on anticoagulant therapy: 0.9 - 1.1INR ranges for oral anticoagulanttherapy:For prevention and treatment of venous thrombosis and pulmonary embolism: 2.0 - 3.0For acute myocardial infarction with aspirin therapy: 2.0 - 3.0For acute myocardial infarction without aspirin therapy: 3.0 - 4.0For patients with mechanical prosthetic heart valves: 2.5 - 3.5 Blood Venous blood specimen / Unknown 12/30/2024 11:06 AM EDT 12/30/2024 1:59 PM EDT us Andrei Gutierrez MD LAB BLOOD ORDERABLES Final Result Performing Organization Address City/[facility] Co de Phone Number [facility] [address] [place] [phone] * Iron And Total Iron Binding Capacity (12/30/2024 11:06 AM EDT) Iron 133 45 - 160 mcg/dL [facility] Total Iron Binding Capacity 304 228 - 428 mcg/dL [facility] Percent Iron Saturation 44 15 - 50 % [facility] Unsaturated Iron Binding 171 ug/dL [facility] Blood Venous blood specimen / Unknown 12/30/2024 11:06 AM EDT 12/30/2024 1:59 PM EDT us Andrei Gutierrez MD LAB BLOOD ORDERABLES Final Result Performing Organization Address City/[facility] Co de Phone Number [facility] [address] [place] [address] [phone] * Ferritin (12/30/2024 11:06 AM EDT) Ferritin 44 20 - 250 ng/mL [facility] Blood Venous blood specimen / Unknown 12/30/2024 11:06 AM EDT 12/30/2024 1:59 PM EDT Andrei Gutierrez MD LAB BLOOD ORDERABLES Final Result Performing Organization Address [facility] Co de Phone Number [facility] [address] [place] [phone] [phone] * Immunoglobulins Panel, Serum (12/30/2024 11:06 AM EDT) IMMUNOGLOBULIN G 1350 600 - 1640 mg/dL [facility] IMMUNOGLOBULIN A 135 47 - 310 mg/dL [facility] Immunoglobulin M 92 50 - 300 mg/dL [facility] Comment:THIS TEST WAS PERFOR MED AT:[id number] [place] [id number] LONGORIA MD Blood Venous blood specimen / Unknown 12/30/2024 11:06 AM EDT 12/30/2024 1:59 PM EDT us Andrei Gutierrez MD LAB BLOOD ORDERABLES Final Result Performing Organization Address [facility] de Phone Number [facility] [address] [place] [phone] documented in this encounter Visit Diagnoses Diagnosis Transaminitis- Primary Nonspecific elevation of levels of transaminase or lactic acid dehydrogenase (LDH) documented in this encounter Additional Health Concerns Assessment Noted Time PHQ-9 Depression Total Score: 0 12/27/19 10:31 AM EDT documented as of this encounter Care Teams Chronic Care Nurse Relationship Specialty Start Date End Date Andrei Gutierrez MD [address] [place] [phone] PCP - General Internal Medicine 09/17/18 documented as of this encounter
== END 2025-02-10 09:26 | disposition home or self-care (01) ==
LOC: HO.US 09:25
PROVIDERS: PCP Internal Medicine; Visit Provider Internal Medicine
DX: R74.01 Elevation of levels of liver transaminase levels (principal)
CPT/HCPCS: 76700

== ENCOUNTER → 2025-02-10 09:27 | Outpatient (BNV) | payer OTHER, SELFPAY | PROVIDERS: PCP Internal Medicine; Visit Provider Radiology Diagnostic Radiology | DX: R74.01 Elevation of levels of liver transaminase levels (principal) | CPT/HCPCS: 76700 ==